=== PATIENT | male | born 1945 | race Caucasian/White ===

== ENCOUNTER 2018-08-10 05:59 | Inpatient (IN) | payer OTHER, MEDICARE, SELFPAY ==
[2018-08-02 09:51] VITALS: BMI 36.0
[2018-08-10] VITALS (20 sets, daily range): BP systolic 93–141; BP diastolic 41–84; PULSE 65–81; RESP 8–19; TEMP 36.2–36.9; O2SAT 92–99; BMI 35.6
--- NOTE | 2018-08-10 06:00 | DI.RAD.S_ITS ---
PROCEDURE: XR KNEE LT 1TO2V INDICATIONS: prosthesis placement TECHNIQUE: 2 view(s) of the knee acquired. COMPARISON: None. FINDINGS: Bones: Patient is status post knee joint arthroplasty. Hardware components are in expected positions. Visualized bony structures are intact. Soft tissues: Overlying postoperative changes are noted. IMPRESSION: Left knee arthroplasty with prosthesis in anatomic alignment. Dictated by: Hermilo Ferrara M.D. on 08/10/2018 at 10:21 Approved by: Hermilo Ferrara M.D. on 08/10/2018 at 10:22
[2018-08-10] MEDS: CELECOXIB 200 MG CAPSULE PO (06:52)
[2018-08-10] MEDS: ACETAMINOPHEN 325 MG TABLET 975 MG PO ×3 (06:52→20:08)
[2018-08-10] MEDS: PREGABALIN 75 MG CAPSULE PO (06:52)
[2018-08-10] MEDS: LACTATED RINGERS 1,000 ML 42 ML IV (07:09)
--- NOTE | 2018-08-10 07:40 | PM.PREOP ---
Pre-operative Note Interval Note History & Physical reviewed/Exam performed by Physician: Yes Changes to H&P: No
--- NOTE | 2018-08-10 07:40 | PM.OP.1 ---
Operative Date/Time/Diagnoses Date of procedure: 08/10/18 Time of procedure: 09:30 Pre-op diagnosis: Left knee osteoarthritis Post-op diagnosis: same Procedure & Clinicians Procedure: Left total knee replacement Same procedure as scheduled: Yes Indications: The patient has had progressively worsening left knee pain with radiographic changes consistent with arthritis. Non-operative management has failed and the patient has requested total knee replacement. The risks, benefits and alternatives to surgery were discussed with the patient prior to proceeding. Risks discussed included, but were not limited to, failure to relieve pain, stiffness, infection, nerve damage, deep venous thrombosis, pulmonary embolism, stroke, coma, heart attack, permanent paralysis and , as well as the potential need for eventual revision of the prosthetic. Surgeon: Delbert Lewis Supervisor Phosphorus Processing: Patience Gale Click Yes if Unassisted: No Anesthesia Type: General, Spinal and Local Operative Notes Findings: Severe osteoarthritis worst in the medial compartment with significant varus and flexion contracture deformities. Closure Type: primary Specimen(s): none sent Implants & Drains: Implants used in this procedure were manufactured by the [employer] and [employer] and included the BCS II Journey total knee replacement with a size 8 cobalt chromium femoral component, 7 left non porous tibial base plate, a 9 mm cross-linked polyethylene tibial insert, and a 35 mm oval Jayla II patellar component. Applied: implant(s) Estimated Blood Loss (mL): 50 Blood products transfused: none Tourniquet time (min): 62 Procedure in detail: The patient was seen in the pre-operative area, where the left knee was identified as the operative site and this was marked with my initials. The patient received pre-operative antibiotics, and was taken to the operating room and placed on the operative table in the supine position. After satisfactory anesthesia, a clinical laboratory technician out? was performed. The left leg was encircled with a tourniquet about the proximal thigh, and the leg was prepared from the toes to the tourniquet with ChloroPrep in the usual fashion and draped through sterile drapes. The leg was elevated and exsanguinated with Eschmark bandage and the tourniquet inflated to 250 mmHg pressure. The knee was approached through an approximately 18 cm incision centered over the patella and carried into the knee through a medial parapatellar arthrotomy. The anterior osteophytes and soft tissues were removed. The rotational landmarks of [place]'s line and the transepicondylar axis were marked on the femur with electrocautery, and intramedullary guide holes for the femur and tibia were created. The distal femoral cut was made in 6 degrees of valgus using the intramedullary guide at the +2 cut setting due to the pre-existing flexion contracture. The proximal tibial cut was then made using the intramedullary guide, taking 9 mm of bone off the less involved side. The extension gap was checked and the rotation of the femoral component confirmed with the gap balancing blocks. The anterior, posterior and chamfer cuts were then made. The posterior osteophytes and soft tissues were then removed. The posterior capsule was injected with part of a mixture of 60 ml 0.25% Marcaine mixed with 20 ml Exparel and 4 mg of morphine for post-operative pain control. The remainder of this mixture was injected into the capsule and subcutaneous tissues during cement curing. The tibia was prepared with the rotation set by an extra medullary guide. Trial tibial and femoral components were then placed and the intercondylar notch cut through the femoral trial. Range of motion was 0-135 degrees, with good stability throughout the range. The patella was then cut to accommodate the patellar prosthetic. There was no need for a lateral release. The trials were then removed, and the femoral hole plugged with a bone plug. The bone was prepared with pulsatile lavage, and dried with a sponge. Cement was applied and the final prosthetics placed. Excess cement was removed during and after cement curing. After confirming there was no extruded cement posteriorly, the final tibial insert was placed. The knee was copiously irrigated and the tourniquet deflated. Hemostasis was obtained. The capsule was closed with interrupted # 2 polyester sutures. The subcutaneous layer was closed with 3-0 Vicryl, and the skin with a running 3-0 V-Lock suture and SteriStrips. An Aquacel Ag dressing was applied and the patient was taken to recovery having tolerated the procedure well. Complications: none Condition: stable Disposition: PACU Plan for aftercare: The patient will be maintained on a standard total knee replacement protocol with weight bearing as tolerated. The patient will receive aspirin and sequential compression devices for DVT prophylaxis. The patient will be discharged home when safe for the home environment.
[2018-08-10] MEDS: CLINDAMYCIN 900 MG/50 ML PIGGYBACK 50 MG IV (07:42)
--- NOTE | 2018-08-10 08:23 | SUR.OPER ---
Supine on padded OR bed. Pillow under head, arms secured on padded armboards <90 degree abduction. Safety belt across torso. Non-operative leg secured with tape over blanket over lower leg. Operative leg secured in DeMayo/Mendez positioner. Foam padded brace at thigh of operative leg.
[2018-08-10] MEDS: BUPIVACAINE 0.25% W/ EPI VIAL 60 ML INJ (08:28)
[2018-08-10] MEDS: BUPIVACAINE LIPOSOME 266 MG/20 ML VIAL INJ (08:29)
[2018-08-10] MEDS: TRANEXAMIC ACID 1,000 MG VIAL 1000 MG INJ ×2 (08:31→09:23)
[2018-08-10] MEDS: MORPHINE 4 MG/ML INJ INJ (08:31)
[2018-08-10] MEDS: fentaNYL 100 MCG/2 ML INJ 50 MCG IV ×2 (10:16→10:33)
[2018-08-10] MEDS: OXYCODONE IR 5 MG TABLET PO ×3 (10:52→20:10)
--- NOTE | 2018-08-10 11:05 | SUR.PHASEI ---
Patient transferred to inpatient room 231. Report given to Bianca Mukherjee RN. VSS on arrival. O2 sat 92-93% O2 1L/SAP CONSULTANT per orders. Dressing to left knee clean, dry and intact. patient was medicated with oral pain medication prior to transfer from PACU. Pain level 8/10. Patient relaxed. No complaints of Nausea. Family at bedside.
[2018-08-10] MEDS: LACTATED RINGERS 1,000 ML 125 ML IV ×2 (12:32→21:15)
--- NOTE | 2018-08-10 13:40 | PT.IIE ---
Current Diagnoses Unilateral primary osteoarthritis, left knee (08/10/18) Surgery Performed Operation Date: 08/10/18 07:45 Actual Procedures p Total Knee Arthroplasty(Left) - Delbert Lewis MD Surgical History (Last Updated 08/02/18 @ 10:58 by Mayela Redmond, RN) History of arthroscopy of both knees (Acute) History of lumbar surgery (Acute) History of orchiectomy, bilateral (Acute) History of renal stent (Acute) Hx of prostatectomy (Acute) Medical History (Last Updated 08/02/18 @ 10:31 by Mayela Redmond RN) Ankle fracture, right (Acute) Cervicalgia (Acute) DJD (degenerative joint disease) (Acute) Easy bruisability (Acute) HTN (hypertension) (Acute) Hydronephrosis (Acute) Numbness (Acute) PTSD (post-traumatic stress disorder) (Acute) Prostate cancer (Acute ~2000) Rash (Acute) Seasonal affective disorder (Acute) Swelling (Acute) Physical Therapy Inpatient Evaluation/Re-Eval M1 PT/OT-IP Prior Functional Status Start: 08/10/18 14:46 Freq: NEEDED Status: Active Protocol: Document 08/10/18 13:40 AB (Rec: 08/10/18 15:06 AB [id number]) Medical Review Prior Functional Status Medical History Reviewed Yes Communication able to make needs known Mobility and Gait stated that he is independent with all mobilities and ambulation wihtout AD Social History Household Members spouse family children Living Arrangements House Number of Floors (Floors) One Floor Number of Stairs To Enter/Railing? has a ramp to enter Home Environment High Toilet Walk in Shower Home Equipment Front Wheel Walker Straight Cane Shower Seat with Backrest Hand Held Shower Grab Bars Near Toilet Grab Bars In Shower Employment Status Retired M2 PT-IP Current Condition Start: 08/10/18 14:46 Freq: NEEDED Status: Active Protocol: Document 08/10/18 13:40 AB (Rec: 08/10/18 15:06 AB [id number]) Physical Therapy Current Condition Current Condition Evaluation Date 08/10/18 Treatment Diagnosis s/p L TKA; difficulty in walking Onset Date 08/10/18 Precautions Other Precautions BP Weight Bearing Status Weight Bearing Status Weight Bear as Tolerated M3 PT-IP Subjective Start: 08/10/18 14:46 Freq: NEEDED Status: Active Protocol: Document 08/10/18 13:40 AB (Rec: 08/10/18 15:06 AB [id number]) Subjective Physical Therapy Visit Type Type Initial Evaluation Visit Start Time 13:40 Visit Stop Time 14:40 Total Visit Minutes 60 Number of FLOW MANAGER Visits 0 Physical Therapy Visit Comments Patient Comments pt agreeable to do PT Patient Goals i want to go home today Therapy Pain Assessment Pain When Pain Assessed At Rest Pain Present Pain Present Pain Reported Location Left Knee Intensity 8 Scale Used Numeric (1 - 10) Pain Management Techniques Apply Cold Re-positioning Timing of Activity with Medications M4 PT-IP Mobility and Gait Start: 08/10/18 14:46 Freq: NEEDED Status: Active Protocol: Document 08/10/18 13:40 AB (Rec: 08/10/18 15:06 AB [id number]) PT-Bed Mobility Assessment Supine to Sit Supine to Sit Standby Assistance Sit to Supine Sit to Supine Standby Assistance Scooting Scooting to Edge of Bed Standby Assistance PT-Transfer Assessment Sit to and From Stand Sit to and from Stand Contact Guard Assistance Equipment Transfer Assistive Device Gait Belt Front Wheeled Walker Orthotic/Prosthetic Devices or Brace: No Transfers Transfer Destination Toilet Transfer Technique pt ambulated to the toilet using FWW Transfer Ability Level of Assist Contact Guard Assistance 1 Person Assistance Use of Upper Extremities Comments Mobility Comments BP monitored. supine in bed: 111/67. pt completed supine to sit SBA. BP sitting on EOB : 125/75. pt completed sit to stand from EOB CGA and ambulated to the toilet ~ 25 ft using FWW CGA. pt was able to maintain standing using FWW for support SBA while usind urinal. pt instructed to sit on the toilet and completed SBA. assisted pt with brief management. pt completed sit to stand from the toilet CGA using grab bar to assist. pt c/o slight lightheadedness. pt ambulated to the chair using FWW SBA to CGA. BP sitting on chair: 85 /52. informed nurse. BP after 2 min rest sitting on chair: 98/58. positioned pt on chair. ice pack provided. call light and table positioned within reach. BP checked again: 99/41. NAC came to check vitals and BP gotten again: 84/51. Reclined pt on chair. BP: 106/64. nurse informed. pt also c/o seeing white dots. BP checked after 2 min in reclined positioned: 118/67. [place] 68 O2 sat: 96% nurse informed Gait Assessment Gait Gait Assistance Required: Standby Assistance Contact Guard Assist Distance (Feet) 25 Able to Maintain Weight Bearing Status Yes During Gait Assistive Devices Assistive Device Gait Belt Front Wheeled Walker Orthotic/Prosthetic Devices or Brace: No Gait Deviations General Gait Pattern Antalgic Decreased Stride Length Decreased Feet Clearance Factors Limiting Gait Function Factors Limiting Gait Function Decreased Activity Tolerance Decreased Strength Limited Range of Motion Pain Poor Balance PT-Balance Assessment Sitting Balance and Reactions Static Sitting Balance Ability Good Dynamic Sitting Balance Ability Good Standing Balance and Reactions Static Standing Balance Ability Fair Dynamic Standing Balance Ability Fair Device Used FWW M5 PT-IP Objective Assessments Start: 08/10/18 14:46 Freq: NEEDED Status: Active Protocol: Document 08/10/18 13:40 AB (Rec: 08/10/18 15:06 AB [id number]) Orientation Orientation/Cognition Level of Alertness Alert Orientation Name Age Birthday Month Date Year Day of Week Place Situation Language Function Ability No Deficits Noted Safety Awareness Understands Safety Issues Memory Description No Deficits Noted Gross Range of Motion Lower Extremity ROM Assessment Left Impaired Impairments knee flexion: ~ 70 deg Strength Lower Extremity Strength Assessment Left Impaired Knee 4-/5 M6 PT-IP Treatment Start: 08/10/18 14:46 Freq: NEEDED Status: Active Protocol: Document 08/10/18 13:40 AB (Rec: 08/10/18 15:06 AB [id number]) Physical Therapy Treatment Exercises Exercises Heel Slides Education Education Provided Precautions Weight Bearing Status Post-Op Packet Safety M7 PT-IP Assessment and Plan Start: 08/10/18 14:46 Freq: NEEDED Status: Active Protocol: Document 08/10/18 13:40 AB (Rec: 08/10/18 15:06 AB [id number]) PT Summary Assessment and Plan Potential Rehabilitation Potential Good Status of Condition at Evaluation Evolving Summary Impairments Pain ROM Strength Balance Coordination Sensation Tone Cognition Bed Mobility Transfers Gait Activity Tolerance Assessment Summary pt requiring SBA to CGA with moblity but unable to tolerate much activity due to decrease in BP. unable to conduct further ambulation due to decrease in BP. will continue to f/u. Goals Bed Mobility Goal Independent Transfer Goal Independent Front Wheeled Walker Gait Goal Independent Front Wheel Walker Gait Distance 200 Days to Meet Goals 3 Frequency of Treatment Frequency Of Treatment Twice a Day Treatment Plan Physical Therapy Treatment Plan Bed Mobility Training Transfer Training Gait Training Therapeutic Exercise Balance Retraining Post Op Education Discharge Planning Hot or Cold Pack Neuromuscular Re-ed Coordination Retraining Manual Therapy Other Recommendations and Next Treatment ambulation Focus Recommendations To Nursing Amount of Assist Needed 1 Person Assist Discharge Recommendations PT Discharge Recommendations Home with Assistance Outpatient PT
--- NOTE | 2018-08-10 13:52 | CM.DANOTE ---
Discharge Planning/Care Management CM Discharge Assessment Start: 08/10/18 13:45 Freq: Status: Active Protocol: Document 08/10/18 13:45 (Rec: 08/10/18 13:52 [id number]) Discharge Planning Assessment Assigned Integrated Logistics Programs Director VIN Haynes Advance Directives? Yes Advance Directives on File No History Provided By Patient Family Member Significant Other Medical Record Has Patient been admitted in last 30 No days? Prior Living Arrangements House Household Members spouse family children Comment Resides in [place]. Type of transporation used prior to Drives own vehicle admit Independent with ADL's Yes Is patient alert and oriented? Yes Caregiver for Another No DME Already Rented / Owned FWW / Walker Comment Has 2WW available but did not use it. Patient/Family Preference OP PT Therapy Comment Patient has OP PT set up at [facility] in [place] Barriers to Discharge No Discharge Plan Home Community Services Physical Therapy Transportation Arrangement Spouse will provide. Referrals Initiated None needed Additional Comment Payer is [place] [employer]/[place]. [place] choice provided pre-auth for surgery. PCP is Vanita Soria. Reviewed EMR: Patient is pending PT eval. Met with patient, spouse, and granddaughter: patient is independent at baseline and has large support system at home. Spouse used to run an [employer] so house is set up as so. Family does not expect any discharge needs or concerns at this time. Inpatient Status as of 08/10/18 Whiteboard Updated in Patient Room with Yes name and ext. # of Integrated Logistics Programs Director Review Status In Process Please Provide Date Initial DC 08/10/18 Assessment Was Performed Next Review Type Continued Stay Review Pre-Anesthesia Assessment Start: 07/26/18 10:37 Freq: Status: Active Protocol: Document 08/02/18 09:51 CAB (Rec: 08/02/18 10:47 CAB [id number]) Pre-Anesthesia Assessment Patient Also Known As (HALINA) Roscoe Patient Information Reviewed Via Phone Assessment Assessment Completed With Patient Lab Results EKG Other Comment Outside labs/EKG from [place] Primary Care Provider Gwendolyn Cary Medical Clearance Received Yes Seen Specialist in Last 12 Months Yes Specialist Seen Orthopedist Urologist Comment PCP clearance to med recs to be scanned to record Primary Language Italian Retail Experience Specialist Required No Height 172.72 cm Weight 107.501 kg Body Mass Index (BMI) 36.0 Hearing Ability Normal Hard of Hearing Visual Assist Glasses Dentition Type Full- Upper & Lower Barriers to Learning Memory Comment Does not wearing hearing aid Hx Anesthesia Reactions No Hx Family Anesthesia Reaction No Hx Malignant Hyperthermia No Hx Blood Transfusions No Anesthesia Review Requested No Entry Level Automotive Technician No alcohol intake current alcohol intake frequency a few times a month Smoking Status Former smoker Smoking packs per day 2 how long ago did patient quit smoking Quit 15-20 years ago Substance Use Type does not use Pain Present Pain Reported Musculoskeletal Symptoms Abnormal Gait Back Pain Difficulty Walking Joint Pain Muscle Cramps Muscle Spasms Neck Pain Numbness History of Falling (Recent or History of Yes ) Patient is completely paralyzed or No completely immobile Prosthesis or Orthotic Device Cane Front Wheel Walker Mental Status Oriented to own ability Is patient on oxygen? No Does patient have SALGUERO/SOB No Hx Sleep Apnea No Currently Taking a Beta Britta Yes: Atenolol Can You Climb a Flight of Stairs Without No: Pt feels due to SOB deconditioning Hx Chest Pain No Hx SOB No Hx Syncope or Dizziness Yes: With bending over, standing up too quickly Anti-Coagulant Therapy No Has a Buckle Coverer No Cardiac Testing No Hx Pacemaker/ICD No Pacemaker Rep Required? No Cardiac Clearance Received Not Applicable Diet Type At Home Regular dysphagia No Genitourinary Symptoms Dribbling Bladder Pattern Incontinent Nocturia Retention Urinary Catheter Present Yes: Within 6 months, now removed Hx Urinary Self Catheterization No Comment Wears pad at night Diabetes No HgbA1C 5.5 Date 06/29/18 Hx Drug Resistant Organism No Presence of External or Internal Medical No Devices Have you traveled outside the [facility] in the last 30 days? Marital Status Lives With spouse family children Prior Living Arrangements House Number of Floors (Floors) One Floor Number of Stairs To Enter/Railing? steps and ramps Support System Child/Children Spouse Does the Patient Have Assistance After Yes Surgery Patient Discharge Plan Description Return Home Comment Pt advised possiblity to go home same day Feels Safe in Current Environment Yes Been Physically Hurt or Threatened By a No Person in Current Environment Do you have thoughts of harming yourself None or others? Are you currently considering suicide? No Do you have a plan to hurt yourself or No Plan others? Do You Have Any Spiritual Beliefs That No May Affect Your HC Choices? Do You Have Any Cultural Practices That No May Affect Your HC Choices? Spiritual Referral None Who Can We Speak to About Patient's Care Family, friends Identifying Code for Release of Patient Declines to issue Information Health Care Proxy/Next of Kin Rubi () Health Care Proxy Emergency Contact Name Rubi () Emergency Contact Advance Directives? Yes Advance Directives on File No Requested Patient Bring Advanced Yes Directives DOS Power of Assembler Brazer No PAC Instructions Durable medical equipment Medications to take/avoid Nasal antibiotic No ETOH/petroleum product on skin DOS NPO Post-op transportation Pre-surgical wash Sensory aids Sturdy shoes/comfortable clothes Do not bring valuables and remove jewelry
--- NOTE | 2018-08-10 16:06 | PC.NURSE ---
Day Shift- report rec'd from day RN around 1415. At bedside pt in BR working with PT. IVF infusing LR at 125mls/hr per order. Family at bedside. During PT assessment, pt BP decreased to SBP of 85, pt assisted by PT into recliner chair and placed in reclined position. Continuous O2 monitoring on, SBP increased to 112.
[2018-08-10] MEDS: CEFAZOLIN 2 GM/100 ML FROZ.PIGGY IV (17:23)
[2018-08-10] MEDS: MEGESTROL 20 MG TABLET PO (20:08)
[2018-08-10] MEDS: ASPIRIN EC 81 MG TABLET PO (20:08)
--- NOTE | 2018-08-10 23:31 | PC.NURSE ---
1500- assumed care of pt from outgoing shift. Pt awake and alert. pt asking if his family can bring a milkshake in. pt tolerating food ok so encouraged to bring one in for pt. pt uses call light. Pt resting in chair. and is comfortable. Pt has ice to left knee. Pt updated on plan of care. family at bedside. fluids infusing. tolerating. will continue to monitor pt for safety.
[2018-08-11 00:05] VITALS: BP 148/76; PULSE 88; RESP 20; TEMP 36.7; O2SAT 97
[2018-08-11] MEDS: CEFAZOLIN 2 GM/100 ML FROZ.PIGGY IV (00:06)
[2018-08-11] MEDS: OXYCODONE IR 5 MG TABLET PO ×3 (00:20→09:22)
--- NOTE | 2018-08-11 02:54 | PC.NURSE ---
Assumed care of pt at 2300 08/10/18. Pt sleeping during bedside hand-off. Awakens to voice. A/OX3. Drsg to L. knee with itz wrap c/d/i. CMS+. BP has increased since prior assessments. Ambulating to bathroom. Denies dizziness or sob during ambulation. 1 pa w/fww. Steady on feet. PO Analgesics per mar for post-op pain. Using I.S.; enc to use 10x/hr. Pt demonstrating proper use. IVF infusing per orders. SCD's on. Bed alarm on. Call light within reach.
[2018-08-11 04:13] VITALS: BP 155/82; PULSE 93; RESP 18; TEMP 36.8; O2SAT 98
[2018-08-11] MEDS: PANTOPRAZOLE 20 MG TABLET PO (05:37)
[2018-08-11 05:39] LABS: Hematocrit 32.9 % (41-53); Hemoglobin 11.2 g/dL (13.5-17.5)
--- NOTE | 2018-08-11 06:49 | P.DS_ITS ---
History of Present Illness Date Patient Seen: 08/11/18 Time Patient Seen: 06:35 Chief complaint: [id number] Knee Arthroplasty Narrative: History and physical examination are included in the chart in a previously completed note. Please refer to that note for this information. Discharge Providers Date of admission: 08/10/18 05:59 Primary care physician: Vanita Soria MD Consults: 08/10/18 11:54 Consult to Discharge Planning Routine Comment: Consult to Physical Therapy Evaluate & Treat Comment: Physician Instructions: postop TKA protocol Discharge provider: Delbert Lewis MD Discharge Date: 08/11/18 Summary Discharge Diagnosis: 1. Osteoarthritis of the left knee 2. Acute post hemorrhagic anemia Hospital Course: The patient was admitted to the hospital and taken directly to the operating room on August 10, 2018. He underwent a left total knee replacement without complications. His original intention was to go home on the day of surgery however he did have some mild lightheadedness and ortho static hypotension so he was observed overnight. At the time of this dictation it is planned that he will go home later today after additional physical therapy. Status at Discharge Cognitive/behavioral status at discharge: Baseline Functional status at discharge: uses cane/walker Overall status at discharge: patient is progressing back to baseline Time Spent with Patient Less than 30 minutes Exam Vital Signs (past 8 hours): - 08/11/18 00:05 08/11/18 04:13 Temperature 98.0 F 98.3 F Pulse Rate 88 93 H Respiratory Rate 20 18 Blood Pressure 148/76 H 155/82 H Pulse Oximetry 97 98 Oxygen Delivery Method Nasal Cannula Oxygen Flow Rate 1 Narrative Exam Narrative: On physical examination the left knee wound is dressed with no drainage on the bandage. Calf is soft. Light touch and motion are intact in the left lower extremity. Objective Labs Result Diagrams: 08/11/18 04:52 Labs: Laboratory Results - last 24 hr 08/11/18 04:52 Hgb 11.2 L Hct 32.9 L Discharge Plan Discharge Plan Patient Disposition: Home Discharge Med Rec/Prescriptions Prescriptions: New oxycodone 5 mg Tablet 5 mg PO Q3HR PRN (Reason: Pain, Moderate (4-6)) Qty: 40 RF: 0 Continue sertraline 100 mg Tablet 100 mg PO DAILY RF: 0 aspirin [Aspir-81] 81 mg Tablet,Delayed Release (Dr/Ec) 81 mg PO BID RF: 0 acetaminophen [Tylenol Extra Strength] 500 mg Tablet 1,000 mg PO BID RF: 0 amlodipine 10 mg Tablet 10 mg PO DAILY RF: 0 megestrol 40 mg Tablet 20 mg PO BID RF: 0 omeprazole 20 mg Capsule,Delayed Release(Dr/Ec) 20 mg PO DAILY RF: 0 celecoxib [Celebrex] 100 mg Capsule 100 mg PO QAM RF: 0 atenolol 50 mg Tablet 50 mg PO DAILY RF: 0 Follow up/Referrals: Delbert Lewis MD [Physician] - 3-5 Days Provider Discharge Instructions Diet: Diet as Tolerated and Regular Activity: You may bear weight as tolerated on your left leg. Cold/Heat Therapy: Apply ice for 15 min of every hour as needed to the left knee. Skin/Wound/Dressing Care Report to your healthcare provider any signs of infection, such as:: chills, fever, night sweats, increased pain, unusual drainage and unusual redness Dressing: Leave the Jaison wrap intact until 3 days after surgery. You may then remove the Jaison wrap and shower normally with the deeper dressing in place. If the central strip of the deep dressing gets saturated with either water or blood , please call the office to have it changed. Discharge Data Primary Care Provider: Vanita Soria Attending Provider: Delbert Lewis Admit Date/Time: 08/10/18 05:59
[2018-08-11 07:00] VITALS: BP 161/75; PULSE 79; RESP 16; TEMP 36.4; O2SAT 98
--- NOTE | 2018-08-11 07:49 | P.DS_ITS ---
History of Present Illness Date Patient Seen: 08/11/18 Time Patient Seen: 07:47 Chief complaint: [id number] Knee Arthroplasty Narrative: Left knee pain is mild. Denies fever chills. No nausea vomiting. Patient has been up several times using the restroom with using walker as assistance. No physical therapy yet. No steps into his home. is home to assist him. Patient wishes to go home today if safe to do so. Discharge Providers Date of admission: 08/10/18 05:59 Primary care physician: Vanita Soria MD Consults: 08/10/18 11:54 Consult to Discharge Planning Routine Comment: Consult to Physical Therapy Evaluate & Treat Comment: Physician Instructions: postop TKA protocol Discharge provider: Paxton Ohara PA-C Discharge Date: 08/11/18 Summary Discharge Diagnosis: Status post left total knee arthroplasty Hospital Course: The patient has had progressively worsening left knee pain with radiographic changes consistent with arthritis. Non-operative management has failed and the patient has requested total knee replacement. The risks, benefits and alternatives to surgery were discussed with the patient prior to proceeding. Risks discussed included, but were not limited to, failure to relieve pain, stiffness, infection, nerve damage, deep venous thrombosis, pulmonary embolism, stroke, coma, heart attack, permanent paralysis and , as well as the potential need for eventual revision of the prosthetic. Surgeon: Delbert Lewis Public Relations Intern: Patience Gale Click Yes if Unassisted: No Anesthesia Type: General, Spinal and Local Patient taken to the operating room underwent left total knee arthroplasty. Patient back in his room recovering well as in stable condition. Patient has been ambulating in room with using walker. Urinating well. Status at Discharge Functional status at discharge: uses cane/walker Overall status at discharge: patient is progressing back to baseline Time Spent with Patient Less than 30 minutes Exam Vital Signs (past 8 hours): - 08/11/18 00:05 08/11/18 04:13 08/11/18 07:00 Temperature 98.0 F 98.3 F 97.6 F Pulse Rate 88 93 H 79 Respiratory Rate 20 18 16 Blood Pressure 148/76 H 155/82 H 161/75 H Pulse Oximetry 97 98 98 Oxygen Delivery Method Nasal Cannula Oxygen Flow Rate 1 Narrative Exam Narrative: Pleasant 72-year-old male sitting in bedside chair in no apparent distress. Left knee dressing is clean, dry and intact. Sensation is grossly intact to light touch distal left lower extremity. Motor functions intact distal left lower extremity. The left leg is warm and dry. Objective Labs Result Diagrams: 08/11/18 04:52 Labs: Laboratory Results - last 24 hr 08/11/18 04:52 Hgb 11.2 L Hct 32.9 L Discharge Plan Discharge Plan Patient Disposition: Home Discharge comment: DC home today Discharge Med Rec/Prescriptions Prescriptions: Continue sertraline 100 mg Tablet 100 mg PO DAILY RF: 0 aspirin [Aspir-81] 81 mg Tablet,Delayed Release (Dr/Ec) 81 mg PO BID RF: 0 acetaminophen [Tylenol Extra Strength] 500 mg Tablet 1,000 mg PO BID RF: 0 amlodipine 10 mg Tablet 10 mg PO DAILY RF: 0 megestrol 40 mg Tablet 20 mg PO BID RF: 0 omeprazole 20 mg Capsule,Delayed Release(Dr/Ec) 20 mg PO DAILY RF: 0 celecoxib [Celebrex] 100 mg Capsule 100 mg PO QAM RF: 0 atenolol 50 mg Tablet 50 mg PO DAILY RF: 0 Follow up/Referrals: Vanita Soria MD [Primary Care Provider] - Delbert Lewis MD [Physician] - 3-5 Days Provider Discharge Instructions Diet: Diet as Tolerated and Regular Activity: You may bear weight as tolerated on your left leg. Cold/Heat Therapy: Apply ice for 15 min of every hour as needed to the left knee. Other treatments: Aspirin 81 mg b.i.d., Celebrex as prescribed. Tylenol 1000 mg 3 times daily, oxycodone as directed Skin/Wound/Dressing Care Report to your healthcare provider any signs of infection, such as:: chills, fever, night sweats, increased pain, unusual drainage and unusual redness Dressing: Leave the Jaison wrap intact until 3 days after surgery. You may then remove the Jaison wrap and shower normally with the deeper dressing in place. If the central strip of the deep dressing gets saturated with either water or blood , please call the office to have it changed. Visit Report/Discharge Packet Visit Report Forms: Stroke Signs & Symptoms Discharge Data Primary Care Provider: Vanita Soria Attending Provider: Delbert Lewis Admit Date/Time: 08/10/18 05:59
--- NOTE | 2018-08-11 09:20 | PT.IPTN ---
Current Diagnoses Unilateral primary osteoarthritis, left knee (08/10/18) Surgery Performed Operation Date: 08/10/18 07:45 Actual Procedures p Total Knee Arthroplasty(Left) - Delbert Lewis MD Physical Therapy Treatment Note M2 PT-IP Current Condition Start: 08/10/18 14:46 Freq: NEEDED Status: Active Protocol: Document 08/10/18 13:40 AB (Rec: 08/10/18 15:06 AB [id number]) Physical Therapy Current Condition Current Condition Evaluation Date 08/10/18 Treatment Diagnosis s/p L TKA; difficulty in walking Onset Date 08/10/18 Precautions Other Precautions BP Weight Bearing Status Weight Bearing Status Weight Bear as Tolerated M3 PT-IP Subjective Start: 08/10/18 14:46 Freq: NEEDED Status: Active Protocol: Document 08/11/18 09:20 GGD (Rec: 08/11/18 11:04 GGD [id number]) Subjective Physical Therapy Visit Type Type Treatment Note Visit Start Time 08:55 Visit Stop Time 09:20 Total Visit Minutes 25 Number of DEDICATED DRIVER Visits 1 Physical Therapy Visit Comments Patient Comments Pt states he feels ready to go home. Therapy Pain Assessment Pain When Pain Assessed At Rest Pain Present Pain Present Pain Reported Location Left Knee Intensity 4 Scale Used Numeric (1 - 10) Pain Management Techniques Apply Cold Re-positioning Timing of Activity with Medications M4 PT-IP Mobility and Gait Start: 08/10/18 14:46 Freq: NEEDED Status: Active Protocol: Document 08/11/18 09:20 GGD (Rec: 08/11/18 11:04 GGD [id number]) PT-Transfer Assessment Sit to and From Stand Sit to and from Stand Contact Guard Assistance Equipment Transfer Assistive Device Gait Belt Front Wheeled Walker Orthotic/Prosthetic Devices or Brace: No Transfers Transfer Destination Toilet Transfer Ability Level of Assist Contact Guard Assistance 1 Person Assistance Use of Upper Extremities Comments Mobility Comments BP 135/74 after gait. Gait Assessment Gait Gait Assistance Required: Standby Assistance Distance (Feet) 80 Able to Maintain Weight Bearing Status Yes During Gait Assistive Devices Assistive Device Gait Belt Front Wheeled Walker Orthotic/Prosthetic Devices or Brace: No Gait Deviations General Gait Pattern Antalgic Decreased Stride Length Decreased Feet Clearance Factors Limiting Gait Function Factors Limiting Gait Function Decreased Activity Tolerance Decreased Strength Limited Range of Motion Pain Poor Balance M5 PT-IP Objective Assessments Start: 08/10/18 14:46 Freq: NEEDED Status: Active Protocol: Document 08/10/18 13:40 AB (Rec: 08/10/18 15:06 AB [id number]) Orientation Orientation/Cognition Level of Alertness Alert Orientation Name Age Birthday Month Date Year Day of Week Place Situation Language Function Ability No Deficits Noted Safety Awareness Understands Safety Issues Memory Description No Deficits Noted Gross Range of Motion Lower Extremity ROM Assessment Left Impaired Impairments knee flexion: ~ 70 deg Strength Lower Extremity Strength Assessment Left Impaired Knee 4-/5 M6 PT-IP Treatment Start: 08/10/18 14:46 Freq: NEEDED Status: Active Protocol: Document 08/11/18 09:20 GGD (Rec: 08/11/18 11:04 GGD [id number]) Physical Therapy Treatment Exercises Exercises Ankle Pumps Quad Sets Passive Knee Extension Hang Seated Knee Flexion/Extension Education Education Provided Precautions Safety M7 PT-IP Assessment and Plan Start: 08/10/18 14:46 Freq: NEEDED Status: Active Protocol: Document 08/11/18 09:20 GGD (Rec: 08/11/18 11:04 GGD [id number]) PT Summary Assessment and Plan Summary Assessment Summary Pt improving with mobility. He had stable BP with gait. He had no LOB or unsteadiness with mobility. He is safe for home D/C when medically stable . Frequency of Treatment Frequency Of Treatment Twice a Day Treatment Plan Other Recommendations and Next Treatment ambulation Focus Recommendations To Nursing Amount of Assist Needed 1 Person Assist Discharge Recommendations PT Discharge Recommendations Home with Assistance Outpatient PT
[2018-08-11] MEDS: AMLODIPINE 5 MG TABLET 10 MG PO (09:23)
[2018-08-11] MEDS: MEGESTROL 20 MG TABLET PO (09:23)
[2018-08-11] MEDS: SERTRALINE 50 MG TABLET 100 MG PO (09:23)
[2018-08-11] MEDS: CELECOXIB 100 MG CAPSULE PO (09:24)
[2018-08-11] MEDS: ASPIRIN EC 81 MG TABLET PO (09:24)
[2018-08-11] MEDS: ACETAMINOPHEN 325 MG TABLET 975 MG PO (09:25)
[2018-08-11] MEDS: ATENOLOL 50 MG TABLET PO (09:25)
== END 2018-08-11 11:00 | disposition home or self-care (01) | DRG 470 ==
PROVIDERS: Admitting Provider Orthopaedic Surgery; Family Provider Nutritionist; PCP Nutritionist; Visit Provider Orthopaedic Surgery
PROC: 0SRD0JZ Replacement of Left Knee Joint with Synthetic Substitute, Open Approach (ICD-10-PCS; CPT 27447; principal; 2018-08-10 07:45)
DX: M17.12 Unilateral primary osteoarthritis, left knee (principal); E66.9 Obesity, unspecified; F32.9 Major depressive disorder, single episode, unspecified; Z87.891 Personal history of nicotine dependence; Z68.35 Body mass index [BMI] 35.0-35.9, adult; I95.1 Orthostatic hypotension
CPT/HCPCS: 36415; 73560; 85014; 85018; 97110; 97116; 97162; 97530; C1776; C9290; J0690; J1100; J2250; J2270; J2405; J2704; J3010

== ENCOUNTER 2019-09-19 06:01 | Inpatient (IN) | payer OTHER, SELFPAY ==
[2018-08-10 13:45] VITALS: BMI 35.6
[2019-09-12 09:37] VITALS: BMI 31.9
[2019-09-19] VITALS (14 sets, daily range): BP systolic 111–161; BP diastolic 58–89; PULSE 60–78; RESP 10–19; TEMP 36–36.7; O2SAT 93–100; BMI 31.9
--- NOTE | 2019-09-19 06:00 | DI.RAD.S_ITS ---
PROCEDURE: XR KNEE RT 1TO2V INDICATIONS: post op TECHNIQUE: 2 view(s) of the knee acquired. COMPARISON: [facility], CR, XR KNEE LT 1TO2V, 08/10/2018, 10:04. FINDINGS: Bones: Patient is status post knee joint arthroplasty. Hardware components are in expected positions. Visualized bony structures are intact. Soft tissues: Overlying postoperative changes are noted. IMPRESSION: Post right total knee arthroplasty changes with anatomic right knee alignment. Dictated by: Sky Callejas M.D. on 09/19/2019 at 11:34 Approved by: Sky Callejas M.D. on 09/19/2019 at 11:34
[2019-09-19] MEDS: CELECOXIB 200 MG CAPSULE PO (07:08)
[2019-09-19] MEDS: ACETAMINOPHEN 325 MG TABLET 975 MG PO (07:08)
[2019-09-19] MEDS: PREGABALIN 75 MG CAPSULE PO (07:08)
[2019-09-19] MEDS: atenoloL 50 MG TABLET PO (07:42)
[2019-09-19] MEDS: LACTATED RINGERS 1,000 ML 42 ML IV (07:42)
[2019-09-19] MEDS: CEFAZOLIN 2 GM/100 ML FROZ.PIGGY IV (07:47)
--- NOTE | 2019-09-19 07:48 | PM.PREOP ---
Pre-operative Note Interval Note History & Physical reviewed/Exam performed by Physician: Yes Changes to H&P: No
--- NOTE | 2019-09-19 07:49 | P.OP_ITS ---
Operative Date/Time/Diagnoses Date of procedure: 09/19/19 Time of procedure: 09:30 Pre-op diagnosis: Right knee osteoarthritis Post-op diagnosis: same Procedure & Clinicians Procedure: Right total knee replacement Same procedure as scheduled: Yes Indications: The patient has had progressively worsening right knee pain with radiographic changes consistent with arthritis. Non-operative management has failed and the patient has requested total knee replacement. The risks, benefits and alternatives to surgery were discussed with the patient prior to proceeding. Risks discussed included, but were not limited to, failure to relieve pain, stiffness, infection, nerve damage, deep venous thrombosis, pulmonary embolism, stroke, coma, heart attack, permanent paralysis and , as well as the potential need for eventual revision of the prosthetic. Surgeon: Delbert Lewis [facility] Therapist: Majo Tidwell Click Yes if Unassisted: No Anesthesia Type: General, Spinal and Local Operative Notes Findings: Severe medial osteoarthritis with varus deformity and flexion contracture, moderate patellofemoral arthritic change. Closure Type: primary Specimen(s): none sent Prosthetic devices, grafts, tissues, transplants, or devices: Implants used in this procedure were manufactured by the [employer] and included the BCS II Journey total knee replacement with a size 7 right cobalt chromium femur, a size 7 right non porous tibial base plate, a 9 mm cross-linked polyethylene tibial insert, and a 38 mm oval Jayla II patellar component. Applied: implant(s) Estimated Blood Loss (mL): 25 Blood products transfused: none Tourniquet time (min): 53 Procedure in detail: The patient was seen in the pre-operative area, where the patient identified the right knee as the operative site and this was marked with my initials. The patient received pre-operative antibiotics, and was taken to the operating room and placed on the operative table in the supine position. After satisfactory anesthesia, a full time babysitter out was performed. The right leg was encircled with a tourniquet about the proximal thigh, and the leg was prepared f rom the toes to the tourniquet with ChloroPrep in the usual fashion and draped through sterile drapes. The leg was elevated and exsanguinated with Eschmark bandage and the tourniquet inflated to 250 mmHg pressure. The knee was approached through an approximately 18 cm incision centered over the patella and carried into the knee through a medial parapatellar arthrotomy. The anterior osteophytes and soft tissues were removed. The rotational landmarks of Harlan's line and the transepicondylar axis were marked on the femur with electrocautery, and intramedullary guide holes for the femur and tibia were created. The distal femoral cut was made in 6 degrees of valgus using the intramedullary guide at the +2 cut setting due to the flexion contracture. The proximal tibial cut was then made using the intramedullary guide, taking 9 mm of bone off the less involved side. The extension gap was checked and the rotation of the femoral component confirmed with the gap balancing system. The anterior, posterior and chamfer cuts were then made. The posterior osteophytes and soft tissues were then removed. The posterior capsule was injected with part of a mixture of 60 ml 0.25% Marcaine mixed with 20 ml Exparel and 4 mg of morphine for post-operative pain control. The remainder of this mixture was injected into the capsule and subcutaneous tissues during cement curing. The tibia was prepared with the rotation set by an extra medullary guide. Trial tibial and femoral components were then placed and the intercondylar notch cut through the femoral trial. Range of motion was 0-135 degrees, with good stability throughout the range. The patella was then cut to accommodate the patellar prosthetic. There was no need for a lateral release. The trials were then removed, and the femoral hole plugged with a bone plug. The bone was prepared with pulsatile lavage, and dried with a sponge. Cement was applied and the final prosthetics placed. Excess cement was removed during and after cement curing. After confirming there was no extruded cement posteriorly, the final tibial insert was placed. The knee was copiously irrigated and the tourniquet deflated. Hemostasis was obtained. The capsule was closed with interrupted # 2 polyester suture. The subcutaneous layer was closed with 3-0 Vicryl, and the skin with a running 3-0 V-Lock suture and SteriStrips. An Aquacel Ag dressing was applied and the patient was taken to recovery having tolerated the procedure well. Complications: none Post-operative Condition: stable Disposition: PACU Plan for aftercare: The patient will be maintained on a standard total knee replacement protocol with weight bearing as tolerated. The patient will receive aspirin and sequential compression devices for DVT prophylaxis. The patient will be discharged home when safe for the home environment.
[2019-09-19] MEDS: TRANEXAMIC ACID 1,000 MG VIAL 1000 MG INJ ×2 (08:29→08:59)
[2019-09-19] MEDS: BUPIVACAINE LIPOSOME 266 MG/20 ML VIAL INJ (08:29)
[2019-09-19] MEDS: BUPIVACAINE 0.25% W/ EPI 30 ML VIAL 60 ML INJ (08:30)
[2019-09-19] MEDS: MORPHINE 4 MG/ML INJ INJ (08:30)
--- NOTE | 2019-09-19 10:14 | SUR.PHASEI ---
Report called to Venecia.
--- NOTE | 2019-09-19 10:29 | SUR.PHASEI ---
Patient transferred to the floor. VS stable. IV saline locked. Knee dressing CDI. Report to Venecia. Belongings bag with patient, glasses, upper and lower dentures in place.
--- NOTE | 2019-09-19 10:35 | PC.NURSE ---
Day shift: On unit at this time. Oriented to room and call light. Family at bedside for support. Denies any chest pain. Denies any knee pain. Denies nasea. Has had water to drink. Aqucel/ORION wrap CDI. CMS ok. PPP. Tolerating SCD's. Call light in reach. AGrees to not get OOB w/o help from staff. Bed aalrm is on. Pt bringing his own walking to use ans well as him own I.S. device.
[2019-09-19] MEDS: LACTATED RINGERS 1,000 ML 125 ML IV ×2 (10:59→18:27)
[2019-09-19] MEDS: IBUPROFEN 400 MG TABLET PO (12:22)
[2019-09-19] MEDS: ACETAMINOPHEN 325 MG TABLET 650 MG PO ×2 (14:05→22:15)
--- NOTE | 2019-09-19 15:02 | PT.IIE ---
Current Diagnoses Unilateral primary osteoarthritis, right knee (09/19/19) Presence of left artificial knee joint (09/19/19) Surgery Performed Operation Date: 09/19/19 07:45 Actual Procedures p Total Knee Arthroplasty(Right) - Delbert Lewis MD Surgical History (Last Updated 09/12/19 @ 09:38 by Mayela Redmond, RN) History of arthroplasty of left knee (Acute 08/10/18) History of arthroscopy of both knees (Acute) History of lumbar surgery (Acute) History of orchiectomy, bilateral (Acute) History of renal stent (Acute) Hx of prostatectomy (Acute) Medical History (Last Updated 08/02/18 @ 10:31 by Mayela Redmond RN) Ankle fracture, right (Acute) Cervicalgia (Acute) DJD (degenerative joint disease) (Acute) Easy bruisability (Acute) HTN (hypertension) (Acute) Hydronephrosis (Acute) Numbness (Acute) Prostate cancer (Acute ~2000) PTSD (post-traumatic stress disorder) (Acute) Rash (Acute) Seasonal affective disorder (Acute) Swelling (Acute) Physical Therapy Inpatient Evaluation/Re-Eval M1 PT/OT-IP Prior Functional Status Start: 09/19/19 11:23 Freq: NEEDED Status: Active Protocol: Document 09/19/19 14:41 AW (Rec: 09/19/19 15:02 AW [email or web address]) Medical Review Prior Functional Status Medical History Reviewed Yes Communication WNL Mobility and Gait Pt was modified independent for mobility with use of SPC in the community. He typically did not use an AD at home. Activities of Daily Living and IADL's Independent. Prior Functional Level (Other details) Pt drives, manages his own meds, does his own finances. Social History Household Members spouse,family,children Living Arrangements House Number of Floors (Floors) One Floor Number of Stairs To Enter/Railing? Ramped entry Home Environment High Toilet,Ramp Home Equipment Front Wheel Walker,Straight Cane,Manual Wheelchair,Bedside Commode,Shower Seat with Backrest,Long Handled Shoe Horn,Alligator Trapper,Grab Bars Near Toilet,Grab Bars In Shower Employment Status Retired Additional Social History Comment Pt lives with his , Rubi, their daughter, and 7 grandchildren. 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 M2 PT-IP Current Condition Start: 09/19/19 11:23 Freq: NEEDED Status: Active Protocol: Document 09/19/19 14:41 AW (Rec: 09/19/19 15:02 AW [email or web address]) Physical Therapy Current Condition Current Condition Evaluation Date 09/19/19 Treatment Diagnosis R TKA, impaired mobility Onset Date 09/19/19 Weight Bearing Status Weight Bearing Status Weight Bear as Tolerated M3 PT-IP Subjective Start: 09/19/19 11:23 Freq: NEEDED Status: Active Protocol: Document 09/19/19 14:41 AW (Rec: 09/19/19 15:02 AW [email or web address]) Subjective Physical Therapy Visit Type Type Initial Evaluation Visit Start Time 13:20 Visit Stop Time 13:55 Total Visit Minutes 35 Number of APPAREL FASHION DESIGNER Visits 0 Physical Therapy Visit Comments Patient Comments Pt reports history of L TKA ~1 year ago. He feels confident in his post-op mobility and is willing to participate with PT. Patient Goals Pt hopes to return home with family support as soon as possible Therapy Pain Assessment Pain When Pain Assessed During Mobility Pain Present Pain Present Denied Pain M4 PT-IP Mobility and Gait Start: 09/19/19 11:23 Freq: NEEDED Status: Active Protocol: Document 09/19/19 14:41 AW (Rec: 09/19/19 15:02 AW [email or web address]) PT-Bed Mobility Assessment Supine to Sit Supine to Sit Contact Guard Assistance,Head of Bed Elevated Scooting Scooting to Edge of Bed Contact Guard Assistance PT-Transfer Assessment Sit to and From Stand Sit to and from Stand Contact Guard Assistance Equipment Transfer Assistive Device Gait Belt,Front Wheeled Walker Orthotic/Prosthetic Devices or Brace: No Transfers Transfer Destination Chair Transfer Technique pt ambulated with FWW Transfer Ability Level of Assist Contact Guard Assistance Comments Mobility Comments Pt was found sitting up in bed . He completed supine to sit CGA with assist to move his operative leg. He was asymptomatic in sitting and was able to sit with and without UE support during MMT. He stood using FWW CGA and remained symptom-free. He ambulated with FWW CGA and returned to the room where he transferred to the chair CGA. He was positioned in the chair with chair alarm on for safety, call light and table within reach, and fresh ice packs applied. Notified RN that pt was up in chair with alarm on. Gait Assessment Gait Gait Assistance Required: Contact Guard Assist Distance (Feet) 60 Able to Maintain Weight Bearing Status Yes During Gait Assistive Devices Assistive Device Gait Belt,Front Wheeled Walker Orthotic/Prosthetic Devices or Brace: No Gait Deviations General Gait Pattern Antalgic,Decreased Stride Length,Decreased Feet Clearance,Flexed Trunk,Step-to Gait Factors Limiting Gait Function Factors Limiting Gait Function Decreased Sensation,Decreased Strength,Limited Range of Motion Comments Gait Comments Pt ambulated in the fair 60 feet using FWW CGA. He required minimal cues for gait pattern. He demonstrated good safety awareness with the FWW during transfers. Stair Climbing Assessment Comments Stair Climbing Comments Not assessed. No stairs at home. PT-Balance Assessment Sitting Balance and Reactions Static Sitting Balance Ability Good Dynamic Sitting Balance Ability Good Standing Balance and Reactions Static Standing Balance Ability Good Dynamic Standing Balance Ability Good Device Used FWW M5 PT-IP Objective Assessments Start: 09/19/19 11:23 Freq: NEEDED Status: Active Protocol: Document 09/19/19 14:41 AW (Rec: 09/19/19 15:02 AW [email or web address]) Orientation Orientation/Cognition Level of Alertness Alert Orientation Name,Day of Week,Place, Situation Language Function Ability No Deficits Noted Safety Awareness Understands Safety Issues Memory Description No Deficits Noted Gross Range of Motion Lower Extremity ROM Assessment Right Impaired Strength Lower Extremity Strength Assessment Right Impaired Comments Strength Comments LLE grossly 5/5 Coordination Assessment Gross Coordination Gross Coordination WNL Sensation Assessment Sensation Gross Sensation Right LE Impaired,Left LE Impaired Comments Sensation Comments Mild sensation disturbance reported in bilateral plantar feet. Muscle Tone Muscle Tone WNL Yes M6 PT-IP Treatment Start: 09/19/19 11:23 Freq: NEEDED Status: Active Protocol: Document 09/19/19 14:41 AW (Rec: 09/19/19 15:02 AW [email or web address]) Physical Therapy Treatment Exercises Exercises Ankle Pumps,Quad Sets,Heel Slides,Passive Knee Extension Hang Education Education Provided Precautions,Weight Bearing Status,Post-Op Packet,Safety Other Treatments Other Treatment Performed Provided education on role of PT, plan of care, weightbearing status, and safe use of FWW. M7 PT-IP Assessment and Plan Start: 09/19/19 11:23 Freq: NEEDED Status: Active Protocol: Document 09/19/19 14:41 AW (Rec: 09/19/19 15:02 AW [email or web address]) PT Summary Assessment and Plan Potential Rehabilitation Potential Excellent Status of Condition at Evaluation Evolving Summary Impairments ROM,Strength,Sensation,Bed Mobility,Transfers,Gait Assessment Summary Roscoe is a 73 yo man with history of L TKA seen for PT evaluationon POD0 following R TKA. At baseline, he is modified independent with use of SPC in the community. He does report up to four non- injurious falls within the past year which he attributes to worsening knee pain. On evaluation, he required CGA for all mobility but demonstrated good safety awareness and ability to recall movement strategies from his prior TKA one year ago. PT anticipates this pt will achieve the goals of this plan of care and be safe to discharge home with family support once medically cleared . He will also benefit from outpatient PT for knee rehab and to address balance concerns. Goals Bed Mobility Goal Independent Transfer Goal Standby Assistance,Front Wheeled Walker Gait Goal Standby Assistance,Front Wheel Walker Gait Distance 150 Days to Meet Goals 2 Frequency of Treatment Frequency Of Treatment Twice a Day Treatment Plan Physical Therapy Treatment Plan Bed Mobility Training,Transfer Training,Gait Training, Therapeutic Exercise,Balance Retraining,Post Op Education, Discharge Planning,Hot or Cold Pack,Neuromuscular Re-ed, Coordination Retraining,Manual Therapy Other Recommendations and Next Treatment progress gait distance, review Focus ther ex Recommendations To Nursing Amount of Assist Needed Standby Assistance Discharge Recommendations PT Discharge Recommendations Home with Assistance, Outpatient PT Transportation Needs at Discharge Private Vehicle
--- NOTE | 2019-09-19 16:33 | PC.NURSE ---
Evening note: Roscoe is sitting in recliner, awake, Ox3 and to situation. Knee drsg is CDI, fresh ice applied. Reports some numbness around right knee area, but good sensation to lower leg and hip. Wiggling toes, moving feet actively. Pedal pulses are strong. Upon shift change, he told me only reason I am staying the night is because I went bonkers the last time I had strong medications. Reported hallucinations in the past after a surgery. Denied hallucinations at that time. I instructed him to call nurse if he starts seeing anything or having audible hallucinations-he agreed to this. Chair alarm is active & fall precautions are in place. Not even 15 minutes later, patient called to tell me he saw a couple of bugs and wanted me to know. He pointed to a piece of pale blue lint on table, he said this one is still moving. I picked it up, squished it, then turned on the bright light to show him it was lint. He then pointed to the base of bedside table and said well what's that? I told him it was white paint that had gotten scratched off the metal base. He said 'well he probably fell off under it then. I moved the table, he pointed to a few other scratch giang in the paint, I assured him they were scratch giang. He said well you don't have to believe me, but they were there. I talked to him about what he had told me about at shift change, and that we need him to call us if he starts to see other bugs or have any other concerns. He agrees to this plan. TECHNICAL MANAGER in room now to assist him to the toilet. VS remain stable.
[2019-09-19] MEDS: ASPIRIN EC 81 MG TABLET PO (22:15)
[2019-09-19] MEDS: MEGESTROL 20 MG TABLET PO (22:16)
[2019-09-20 03:00] VITALS: BP 161/83; PULSE 76; RESP 18; TEMP 36.1; O2SAT 98
[2019-09-20] MEDS: OXYCODONE IR 5 MG TABLET PO ×3 (05:09→12:46)
[2019-09-20 07:03] LABS: Hematocrit 29.2 % (41-53); Hemoglobin 10.2 g/dL (13.5-17.5)
--- NOTE | 2019-09-20 07:24 | PM.DS.1 ---
History of Present Illness History of Present Illness Date Patient Seen: 09/20/19 Time Patient Seen: 07:24 Chief complaint: Right Total Knee Arthroplasty Narrative: The history and physical is contained in the chart in a previously completed note. Please refer to that note for this information. Discharge Providers Provider Date of admission: 09/19/19 06:01 Discharge Date: 09/20/19 Primary care physician: Vanita Soria MD Consults: 09/19/19 10:34 Consult to Discharge Planning Routine Comment: Consult to Physical Therapy Evaluate & Treat Comment: Physician Instructions: postop TKA protocol 09/19/19 10:54 Consult to Dietitian, Adult Routine Comment: Reason For Exam: 30# weight loss Discharge provider: Delbert Lewis MD Summary Hospital Course Discharge Diagnosis: 1. Right knee osteoarthritis 2. Post hemorrhagic anemia Hospital Course: The patient was admitted to the hospital and taken directly to the operating room on September 19, 2019. He underwent a right total knee replacement without complications. On postoperative day 1 he was comfortable and ready for discharge. Status at Discharge Cognitive/behavioral status at discharge: oriented Functional status at discharge: uses cane/walker Overall status at discharge: patient is progressing back to baseline Time Spent with Patient Time spent: Less than 30 minutes Exam Vital Signs (past 8 hours): - 09/20/19 03:00 Temperature 97.0 F L Pulse Rate 76 Respiratory Rate 18 Blood Pressure 161/83 H Pulse Oximetry 98 Oxygen Delivery Method Room Air Oxygen Flow Rate 0 Narrative Exam Narrative: Right knee wound is dressed with no drainage on the bandage. Calf is soft. Light touch and motion are intact in the right lower extremity. Objective Labs Result Diagrams: 09/20/19 06:40 Labs: Laboratory Results - last 24 hr 09/20/19 06:40 Hgb 10.2 L Hct 29.2 L Discharge Plan Discharge Plan Patient Disposition: Home Discharge orders & Medications Prescriptions: New acetaminophen 325 mg Tablet 650 mg PO TID 30 Days Qty: 180 RF: 0 aspirin 81 mg Tablet,Delayed Release (Dr/Ec) 81 mg PO BID 42 Days Qty: 84 RF: 0 oxycodone 5 mg Tablet 5 mg PO Q4H PRN (Reason: Pain, Moderate (4-6)) Qty: 40 RF: 0 Continued sertraline 100 mg Tablet 100 mg PO DAILY RF: 0 acetaminophen [Tylenol Extra Strength] 500 mg Tablet 1,000 mg PO BID RF: 0 megestrol 40 mg Tablet 20 mg PO BID RF: 0 omeprazole 20 mg Capsule,Delayed Release(Dr/Ec) 20 mg PO DAILY RF: 0 atenolol 50 mg Tablet 50 mg PO DAILY RF: 0 chlorpheniramine maleate [ChlorTabs] 4 mg Tablet 4 mg PO DAILY PRN (Reason: Sinus drainage) RF: 0 Discontinued aspirin [Aspir-81] 81 mg Tablet,Delayed Release (Dr/Ec) 81 mg PO DAILY RF: 0 Follow up/Referrals: Vanita Soria MD [Primary Care Provider] - Delbert Lewis MD [Physician] - 2 Weeks Discharge Health Status Multidrug resistant organism: No MDRO Diet/Activity/Treatments Diet: Diet as Tolerated and Regular Activity: You may bear weight as tolerated on your right leg. Cold/Heat Therapy: Apply ice for 15 minutes every hour as needed to the right knee for pain control. Skin/Wound/Dressing Care Report to your healthcare provider any signs of infection, such as:: chills, fever, night sweats, increased pain, unusual drainage and unusual redness Dressing: You may remove the Jaison wrap 3 days after surgery and shower with the deeper dressing in place. Leave the deeper dressing on until your follow-up. If the central strip of the deeper dressing becomes saturated with either water or blood, please call the office to have it evaluated. Visit Report/Discharge Packet Instructions: DI for Knee Replacement, DI for Prescription Opioid Use Stand Alone Forms: Surgery Discharge Discharge Data Primary Care Provider: Vanita Soria Quality VTE Deep Vein Thrombosis/Pulmonary Embolism Present on Admission: No
[2019-09-20 07:40] VITALS: BP 151/84; PULSE 63; RESP 16; TEMP 36.3; O2SAT 100
[2019-09-20] MEDS: PANTOPRAZOLE 20 MG TABLET PO (09:43)
[2019-09-20] MEDS: ASPIRIN EC 81 MG TABLET PO (09:43)
[2019-09-20] MEDS: DOCUSATE 100 MG CAPSULE PO (09:44)
[2019-09-20] MEDS: ACETAMINOPHEN 325 MG TABLET 650 MG PO (09:44)
[2019-09-20] MEDS: SERTRALINE 50 MG TABLET 100 MG PO (09:44)
[2019-09-20] MEDS: MEGESTROL 20 MG TABLET PO (09:45)
[2019-09-20] MEDS: atenoloL 50 MG TABLET PO (09:45)
--- NOTE | 2019-09-20 11:03 | CM.DANOTE ---
DCP Assessment: (EMR Reviewed): Patient is a pleasant 73 year old male sitting in bedside chair when CM went to meet with him. Introduced self and role. Patient admitted for a left TKA performed by Dr. Lewis. Patient is on jones path. PCP is Dr. Cary. 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 Patient also reported he had his right knee done last month so he knows the drill. 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 Patient reports lives in a single level home and feels confident returning home with all the assistive devices they already have in place. Reports follow-up PT appointments already scheduled and that and daughter will be available to drive him. I: [facility] (Confirmed) P: DC home with , Rubi, and family.Patient reports this as his plan and feels confident and safe. CM will continue to be available for discharge planning needs and any changes. SN Velia Donnelly RN Discharge Planning/Care Management Advanced directive, confirm from FAMILY Start: 09/19/19 10:54 Freq: Q24H Status: Active Protocol: Document 09/19/19 11:09 YAD (Rec: 09/19/19 11:09 YAD [id number]) Advance Directive, confirm on record Time 11:09 Person contacted Pt Copy received No CM Discharge Assessment Start: 09/20/19 11:01 Freq: Status: Active Protocol: Document 09/20/19 11:02 HS (Rec: 09/20/19 11:03 HS [id number]) Discharge Planning Assessment Assigned Repair Cameraman Velia Brenner RN/SN Andrzej Advance Directives? Yes Advance Directives on File No History Provided By Patient,Medical Record Has Patient been admitted in last 30 No days? Prior Living Arrangements House Household Members spouse,family,children Type of transporation used prior to Drives own vehicle admit Independent with ADL's Yes Is patient alert and oriented? Yes Caregiver for Another No DME Already Rented / Owned Wheelchair,FWW / Walker,Cane Comment Has 2WW available but did not use it. Patient/Family Preference OP PT Therapy Barriers to Discharge No Discharge Plan Home Transportation Arrangement Spouse will provide. Referrals Initiated None needed Additional Comment Payer is [employer]/Med[employer]are. [place] choice provided pre-auth for surgery. PCP is Vanita Soria. Reviewed EMR: Patient is pending PT eval. Met with patient, spouse, and granddaughter: patient is independant at baseline and has large support system at home. Spouse used to run an [employer] so house is set up as so. Family does not expect any discharge needs or concerns at this time. Whiteboard Updated in Patient Room with Yes name and ext. # of Repair Cameraman Review Status In Process Next Review Type Continued Stay Review Pre-Anesthesia Assessment Start: 09/12/19 09:37 Freq: Status: Active Protocol: Document 09/12/19 09:37 [facility] (Rec: 09/12/19 10:25 [facility] [id number]) Pre-Anesthesia Assessment Preferred Name Roscoe Patient Information Reviewed Via Phone Assessment Assessment Completed With Patient Diagnostic Results BMP/CMP,CBC,EKG,Urinalysis Comment Outside labs/EKG scanned to record Primary Care Provider Gwendolyn Cary Seen Specialist in Last 12 Months Yes Specialist Seen Oncologist,Orthopedist, Urologist Primary Language German Preferred Language German Height 172.72 cm Weight 95.254 kg Body Mass Index (BMI) 31.9 Hearing Ability Hard of Hearing Visual Assist Glasses Dentition Type Full- Upper & Lower Barriers to Learning Auditory,Memory Comment Does not wear hearing aids Hx Anesthesia Reactions No: Hallucinations s/p LT TKA 08/10/18 Hx Family Anesthesia Reaction No Hx Malignant Hyperthermia No Hx Blood Transfusions No Bottom Scrubber No alcohol intake current alcohol intake frequency a few times a month Smoking Status Former smoker how long ago did patient quit smoking Quit 15-20 years ago Substance Use Type does not use Pain Present Pain Reported Musculoskeletal Symptoms Abnormal Gait,Back Pain, Difficulty Walking,Joint Pain, Muscle Cramps,Muscle Spasms, Neck Pain,Numbness History of Falling (Recent or History of Yes ) Patient is completely paralyzed or No completely immobile Prosthesis or Orthotic Device Cane,Front Wheel Walker Mental Status Oriented to own ability Is patient on oxygen? No Does patient have SALGUERO/SOB No Hx Sleep Apnea No CPAP/BIPAP use not prescribed Currently Taking a Beta Britta Yes: Atenolol Can You Climb a Flight of Stairs Without No: Pt feels due to SOB deconditioning Hx Chest Pain No Hx SOB No Hx Syncope or Dizziness Yes: With bending over, standing up too quickly Anti-Coagulant Therapy No Has a Resource Recovery Engineer No Cardiac Testing No Hx Pacemaker/ICD No Pacemaker Rep Required? No Cardiac Clearance Received Not Applicable Diet Type At Home Regular dysphagia No Genitourinary Symptoms Dribbling Bladder Pattern Incontinent,Nocturia,Retention Urinary Catheter Present No Hx Urinary Self Catheterization No Comment Wears a pad Diabetes No Hx Drug Resistant Organism No Presence of External or Internal Medical No Devices Have you traveled outside the [facility] in the last 30 days? Marital Status Lives With spouse,family,children Prior Living Arrangements House Number of Floors (Floors) One Floor Support System Child/Children,Spouse Does the Patient Have Assistance After Yes Surgery Patient Discharge Plan Description Return Home Comment Pt advised overnight length of stay per surgeon Feels Safe in Current Environment Yes Been Physically Hurt or Threatened By a No Person in Current Environment Do you have thoughts of harming yourself None or others? Are you currently considering suicide? No Do you have a plan to hurt yourself or No Plan others? Do You Have Any Spiritual Beliefs That No May Affect Your HC Choices? Do You Have Any Cultural Practices That No May Affect Your HC Choices? Who Can We Speak to About Patient's Care Family, friends Identifying Code for Release of Patient Declines to issue Information Health Care Proxy/Next of Kin Rubi () Health Care Proxy Emergency Contact Name Rubi () Emergency Contact Advance Directives? Yes Advance Directives on File No Power of Contact Lens Inspector No PAC Instructions Durable medical equipment, Medications to take/avoid, Nasal antibiotic,No ETOH/ petroleum product on skin DOS, NPO,Post-op transportation,Pre -surgical wash,Sensory aids, Sturdy shoes/comfortable clothes,Do not bring valuables and remove jewelry
--- NOTE | 2019-09-20 11:34 | PT.IPTN ---
Current Diagnoses Unilateral primary osteoarthritis, right knee (09/19/19) Presence of left artificial knee joint (09/19/19) Surgery Performed Operation Date: 09/19/19 07:45 Actual Procedures p Total Knee Arthroplasty(Right) - Delbert Lewis MD Physical Therapy Treatment Note M2 PT-IP Current Condition Start: 09/19/19 11:23 Freq: NEEDED Status: Active Protocol: Document 09/19/19 14:41 AW (Rec: 09/19/19 15:02 AW [email or web address]) Physical Therapy Current Condition Current Condition Evaluation Date 09/19/19 Treatment Diagnosis R TKA, impaired mobility Onset Date 09/19/19 Weight Bearing Status Weight Bearing Status Weight Bear as Tolerated M3 PT-IP Subjective Start: 09/19/19 11:23 Freq: NEEDED Status: Active Protocol: Document 09/20/19 11:22 AW (Rec: 09/20/19 11:34 AW [email or web address]) Subjective Physical Therapy Visit Type Type Treatment Note Visit Start Time 10:24 Visit Stop Time 10:43 Total Visit Minutes 19 Number of CYBER SECURITY Visits 0 Physical Therapy Visit Comments Patient Comments Pt has had good pain control and feels ready to get moving. Therapy Pain Assessment Pain When Pain Assessed During Mobility Pain Present Pain Present Pain Reported Location Left Knee Intensity 2 Scale Used Numeric (1 - 10) Pain Management Techniques Apply Cold,Timing of Activity with Medications M4 PT-IP Mobility and Gait Start: 09/19/19 11:23 Freq: NEEDED Status: Active Protocol: Document 09/20/19 11:22 AW (Rec: 09/20/19 11:34 AW [id number]) PT-Bed Mobility Assessment Supine to Sit Supine to Sit Standby Assistance Scooting Scooting to Edge of Bed Standby Assistance Scooting Up and Down in Bed Standby Assistance PT-Transfer Assessment Sit to and From Stand Sit to and from Stand Standby Assistance Equipment Transfer Assistive Device Gait Belt,Front Wheeled Walker Orthotic/Prosthetic Devices or Brace: No Transfers Transfer Destination Bed,Chair Transfer Technique pt ambulated with FWW Transfer Ability Level of Assist Standby Assistance Comments Mobility Comments Pt completed all mobilty SBA with FWW. He moves deliberately and required no cueing for safety. Gait Assessment Gait Gait Assistance Required: Standby Assistance Distance (Feet) 240 Able to Maintain Weight Bearing Status Yes During Gait Assistive Devices Assistive Device Gait Belt,Front Wheeled Walker Orthotic/Prosthetic Devices or Brace: No Gait Deviations General Gait Pattern Antalgic,Decreased Stride Length,Decreased Feet Clearance,Flexed Trunk,Step-to Gait Factors Limiting Gait Function Factors Limiting Gait Function Decreased Sensation,Decreased Strength,Limited Range of Motion Comments Gait Comments Pt ambulated in the hallway using FWW SBA. He required cues to keep walker closer to his trunk to optimize support, but was otherwise safe and mindful with his mobility. Stair Climbing Assessment Comments Stair Climbing Comments Not assessed. No stairs at home. M5 PT-IP Objective Assessments Start: 09/19/19 11:23 Freq: NEEDED Status: Active Protocol: Document 09/19/19 14:41 AW (Rec: 09/19/19 15:02 AW [email or web address]) Orientation Orientation/Cognition Level of Alertness Alert Orientation Name,Day of Week,Place, Situation Language Function Ability No Deficits Noted Safety Awareness Understands Safety Issues Memory Description No Deficits Noted Gross Range of Motion Lower Extremity ROM Assessment Right Impaired Strength Lower Extremity Strength Assessment Right Impaired Comments Strength Comments LLE grossly 5/5 Coordination Assessment Gross Coordination Gross Coordination WNL Sensation Assessment Sensation Gross Sensation Right LE Impaired,Left LE Impaired Comments Sensation Comments Mild sensation disturbance reported in bilateral plantar feet. Muscle Tone Muscle Tone WNL Yes M6 PT-IP Treatment Start: 09/19/19 11:23 Freq: NEEDED Status: Active Protocol: Document 09/20/19 11:22 AW (Rec: 09/20/19 11:34 AW [email or web address]) Physical Therapy Treatment Exercises Exercises Ankle Pumps,Quad Sets,Heel Slides,Short Arc Quads,Passive Knee Extension Hang Education Education Provided Weight Bearing Status,Safety Other Treatments Other Treatment Performed Educated pt on importance of maintaining extension ROM, keeping pillows more distal under his leg if at all. M7 PT-IP Assessment and Plan Start: 09/19/19 11:23 Freq: NEEDED Status: Active Protocol: Document 09/20/19 11:22 AW (Rec: 09/20/19 11:34 AW [id number]) PT Summary Assessment and Plan Summary Progress Towards Goals Progressing Toward Goals Assessment Summary Roscoe required decreased level of assist this AM. 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 Goals Bed Mobility Goal Independent Transfer Goal Standby Assistance,Front Wheeled Walker Gait Goal Standby Assistance,Front Wheel Walker Gait Distance 150 Days to Meet Goals 1 Frequency of Treatment Frequency Of Treatment Twice a Day Treatment Plan Physical Therapy Treatment Plan Bed Mobility Training,Transfer Training,Gait Training, Therapeutic Exercise,Balance Retraining,Post Op Education, Discharge Planning,Hot or Cold Pack,Neuromuscular Re-ed, Coordination Retraining,Manual Therapy Recommendations To Nursing Amount of Assist Needed Standby Assistance Discharge Recommendations PT Discharge Recommendations Home with Assistance, Outpatient PT Transportation Needs at Discharge Private Vehicle
--- NOTE | 2019-09-20 13:31 | PC.NURSE ---
Day shift: Pt left unit in w/ UNDERWRITING INTERN Radhames and his spouse to private car for drive home to [facility]. Paperwork signed and all questions answered. Pt has all personal belongings. Pt has MD script for oxycodone. Pt is also a [employer] Pt and he also had his other knee done approx 1 year ago.
== END 2019-09-20 13:38 | disposition home or self-care (01) | DRG 470 ==
PROVIDERS: Admitting Provider Orthopaedic Surgery; Family Provider Nutritionist; PCP Nutritionist; Referring Provider Orthopaedic Surgery; Visit Provider Orthopaedic Surgery
PROC: 0SRC0JZ Replacement of Right Knee Joint with Synthetic Substitute, Open Approach (ICD-10-PCS; CPT 27447; principal; 2019-09-19 07:45)
DX: M17.11 Unilateral primary osteoarthritis, right knee (principal); I10 Essential (primary) hypertension; F32.9 Major depressive disorder, single episode, unspecified; Z87.891 Personal history of nicotine dependence; Z96.652 Presence of left artificial knee joint; Z85.46 Personal history of malignant neoplasm of prostate
CPT/HCPCS: 36415; 73560; 85014; 85018; 97110; 97116; 97161; C1776; C9290; J0690; J1100; J2250; J2270; J2274; J2405; J2704; J3010